=== PATIENT | female | born 1970 | race Caucasian/White ===

== ENCOUNTER 2023-04-09 19:37 | Emergency (ER) | payer BC, SELFPAY ==
[2023-04-09 20:20] VITALS: BP 174/126; PULSE 97; RESP 20; TEMP 37.8; O2SAT 96
--- NOTE | 2023-04-09 20:59 | ED.GENADULT ---
HPI - General Adult General Chief complaint: Ear Stated complaint: Left Ear Pain Time Seen by Provider: 04/09/23 20:23 History of Present Illness HPI narrative: Estefani presented to the ED with a few days of worseing pain in her left ear, left frontal sinus and tenderness in her left throat. There is no CP, dyspnea, dysphagia or systemic symptoms. Related Data Allergies Allergy/AdvReac Type Severity Reaction Status Date / Time amoxicillin Allergy Anaphylaxis Verified 04/09/23 20:38 Review of Systems Review of Systems: All systems reviewed & are unremarkable except as noted in HPI and below Exam Const: General: cooperative, healthy appearing, comfortable, no acute distress, well developed, alert, awake and Physically active Orientation/consciousness: oriented to person, oriented to place and oriented to time HENMT: Head: normal to inspection, normocephalic and atraumatic Ears: hearing grossly normal bilaterally and external ears normal Face/Nose/Sinus: Normal external nose present Other: left cerumen impaction frontal sinuses are TTP left anterior cervical lymphadenopathy poor dentition Eyes: General: appearance normal, both eyes and all related structures Periorbital: periorbital findings normal Sclera: sclerae normal Pupils: Equal, round and reactive pupils present Neck: Neck: normal visual inspection Chest: Chest palpation & inspection: normal inspection of the chest Resp: Effort & Inspection: normal respiratory effort, able to speak in complete sentences and no respiratory distress Auscultation: clear to auscultation bilaterally Cardio: Jugular venous distension: no JVD Rate: regular rate Rhythm: regular rhythm GI: Inspection: normal to inspection GI Palp: Yes Soft to palpation Auscultation: normal bowel sounds Skin: General skin exam: normal color and no rashes or lesions noted Neuro: General: oriented to person, oriented to place and oriented to time Cranial nerves: Yes Equal, round and reactive pupils present Extrem: General: normal to inspection Course Vital Signs Vital signs: Vital Signs Temperature 100.0 F H 04/09/23 20:20 Pulse Rate 97 04/09/23 20:20 Respiratory Rate 20 04/09/23 20:20 Blood Pressure 174/126 H 04/09/23 20:20 Pulse Oximetry 96 04/09/23 20:20 Oxygen Delivery Room Air 04/09/23 20:20 Temperature 100.0 F H 04/09/23 20:20 Pulse Rate 97 04/09/23 20:20 Respiratory Rate 20 04/09/23 20:20 Blood Pressure 174/126 H 04/09/23 20:20 Pulse Oximetry 96 04/09/23 20:20 Oxygen Delivery Room Air 04/09/23 20:20 Medical Decision Making Vital Signs Vital Signs: Vital Signs Temperature 100.0 F H 04/09/23 20:20 Pulse Rate 97 04/09/23 20:20 Respiratory Rate 20 04/09/23 20:20 Blood Pressure 174/126 H 04/09/23 20:20 Pulse Oximetry 96 04/09/23 20:20 Oxygen Delivery Room Air 04/09/23 20:20 Temperature 100.0 F H 04/09/23 20:20 Pulse Rate 97 04/09/23 20:20 Respiratory Rate 20 04/09/23 20:20 Blood Pressure 174/126 H 04/09/23 20:20 Pulse Oximetry 96 04/09/23 20:20 Oxygen Delivery Room Air 04/09/23 20:20 Discharge Plan Discharge Clinical Impression: Sinusitis, Hypertension Patient Disposition: Home, Self-Care Condition: Stable Instructions: Rhinosinusitis (ED) Prescriptions: New doxycycline monohydrate 100 mg tablet 100 mg PO BID Qty: 14 0RF amlodipine 10 mg tablet 10 mg PO DAILY Qty: 10 0RF Follow-up/Referrals: UNKNOWN,DOCTOR [Primary Care Provider] -
[2023-04-09] MEDS: DOXYCYCLINE HYCLATE 100 MG TABLET PO (21:08)
[2023-04-09 21:09] VITALS: BP 178/119
== END 2023-04-09 21:16 | disposition home or self-care (01) ==
PROVIDERS: Emergency Provider Family Medicine
DX: J32.9 Chronic sinusitis, unspecified (principal); I10 Essential (primary) hypertension
CPT/HCPCS: 99283; A9270